=== PATIENT | male | born 1995 | race American Indian/Alaskan Native ===

== ENCOUNTER 2021-01-04 15:44 | Emergency (ER) | payer SELFPAY ==
[2021-01-04 16:04] VITALS: BP 148/84
--- NOTE | 2021-01-04 17:33 | Emergency Department Report ---
ED ENT HPI - General Chief complaint: Dental/Oral Stated complaint: MOUTH ABCESS Time Seen by Provider: 01/04/21 17:04 Source: patient Mode of arrival: Ambulatory Limitations: No Limitations - History of Present Illness Initial comments: Patient is a 25-year-old male who presents emergency room complaints of a sore throat that began 2 days ago. He states he has discomfort with swallowing. He is able to tolerate p.o. intake. Patient states that he has noticed a white spot to the right tonsil. He denies any fever, chills, body aches, nausea, vomiting, diarrhea, cough, shortness of breath, chest pain. No past medical history. No allergies to medications. - Related Data Previous Rx's Medication Instructions Recorded Last Taken Type Naproxen 375 mg PO BID PRN #20 tablet 01/04/21 Unknown Rx Nystas/Diphen/Xyl Visc/Mylanta 30 ml MM Q4H PRN #300 ml 01/04/21 Unknown Rx [Magic Mouthwash] Allergies Allergy/AdvReac Type Severity Reaction Status Date / Time No Known Allergies Allergy Unverified 01/04/21 16:00 ED Dental HPI - General Chief complaint: Dental/Oral Stated complaint: MOUTH ABCESS Time Seen by Provider: 01/04/21 17:04 Source: patient Mode of arrival: Ambulatory Limitations: No Limitations - Related Data Previous Rx's Medication Instructions Recorded Last Taken Type Naproxen 375 mg PO BID PRN #20 tablet 01/04/21 Unknown Rx Nystas/Diphen/Xyl Visc/Mylanta 30 ml MM Q4H PRN #300 ml 01/04/21 Unknown Rx [Magic Mouthwash] Allergies Allergy/AdvReac Type Severity Reaction Status Date / Time No Known Allergies Allergy Unverified 01/04/21 16:00 ED Review of Systems ROS: Stated complaint: MOUTH ABCESS Other details as noted in HPI Comment: All other systems reviewed and negative ED Past Medical Hx - Past Medical History Previous Medical History?: No - Surgical History Past Surgical History?: No - Social History Smoking Status: Never Smoker Substance Use Type: None - Medications Home Medications: Home Medications Medication Instructions Recorded Confirmed Last Taken Type Naproxen 375 mg PO BID PRN #20 tablet 01/04/21 Unknown Rx Nystas/Diphen/Xyl Visc/Mylanta 30 ml MM Q4H PRN #300 ml 01/04/21 Unknown Rx [Magic Mouthwash] ED Physical Exam - General Limitations: No Limitations General appearance: alert, in no apparent distress - Head Head exam: Present: atraumatic, normocephalic - Eye Eye exam: Present: normal appearance - ENT ENT exam: Present: mucous membranes moist, TM's normal bilaterally, normal external ear exam, other (posterior oropharynx erythema, appears to have a small right sided tonsillith, no exudates, uvula is mildine, no uvular edema or deviation, no trismus, no muffled voice, no submandibular edema) - Respiratory Respiratory exam: Present: normal lung sounds bilaterally. Absent: respiratory distress, wheezes, rales, rhonchi, stridor, chest wall tenderness, accessory muscle use, decreased breath sounds, prolonged expiratory - Cardiovascular Cardiovascular Exam: Present: regular rate, normal rhythm, normal heart sounds. Absent: systolic murmur, diastolic murmur, rubs, gallop - Neurological Exam Neurological exam: Present: alert, oriented X3 - Psychiatric Psychiatric exam: Present: normal affect, normal mood - Skin Skin exam: Present: warm, dry, intact ED Course Vital Signs 01/04/21 16:03 Temperature 98.7 F Pulse Rate 73 Respiratory 18 Rate Blood Pressure 148/84 O2 Sat by Pulse 99 Oximetry ED Medical Decision Making - Medical Decision Making Patient is a 25-year-old male who presents emergency room complaints of a sore throat that began 2 days ago. He states he has discomfort with swallowing. He is able to tolerate p.o. intake. Patient states that he has noticed a white spot to the right tonsil. He denies any fever, chills, body aches, nausea, vomiting, diarrhea, cough, shortness of breath, chest pain. No past medical history. No allergies to medications. Vitals are stable. On exam: posterior oropharynx erythema, appears to have a small right sided tonsillith, no exuda prem, uvula is mildine, no uvular edema or deviation, no trismus, no muffled voice, no submandibular edema. Rapid strep is negative. Patient given prescription for naproxen and Magic mouthwash. Discussed the importance of ENT follow-up. Advised patient Please use medication as prescribed. Gargle with warm salt water. May use throat lozenges. 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 Return to emergency room for any new or worsening symptoms. Critical care attestation.: If time is entered above; I have spent that time in minutes in the direct care of this critically ill patient, excluding procedure time. ED Disposition Clinical Impression: Sore throat, Tonsillith Disposition: 01 HOME / SELF CARE / HOMELESS Is pt being admited?: No Does the pt Need Aspirin: No Condition: Stable Instructions: Sore Throat, [id number] Additional Instructions: Please use medication as prescribed. Gargle with warm salt water. May use throat lozenges. 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 Return to emergency room for any new or worsening symptoms. Prescriptions: Nystas/Diphen/Xyl Visc/Mylanta [Magic Mouthwash] 30 ml MM Q4H PRN #300 ml PRN Reason: sore throat Naproxen 375 mg PO BID PRN #20 tablet PRN Reason: pain Referrals: KEELEY MCCOLLUM MD [Staff Physician] - 2-3 Days TETE ESCALERA MD [Referring] - 2-3 Days Forms: Work/School Release Form(ED) Time of Disposition: 17:49 Print Language: YEMENI
== END 2021-01-04 18:19 | disposition home or self-care (01) ==
LOC: ED 15:44
DX: J03.90 Acute tonsillitis, unspecified (principal); Z79.899 Other long term (current) drug therapy
CPT/HCPCS: 87116; 87430; 99283